=== PATIENT | female | born 1970 | race Caucasian/White ===

== ENCOUNTER → 2016-06-21 | Outpatient (CLI) | payer BC | LOC: GMA 10:17 | PROVIDERS: ATTEND Nurse Practitioner Acute Care | DX: D51.3 Other dietary vitamin B12 deficiency anemia (principal) ==

== ENCOUNTER → 2016-10-25 | Outpatient (CLI) | payer BC ==
--- NOTE | 2016-10-25 14:27 | MAM ---
History: Well woman exam. Date of exam: 10/25/2016 Services provided: Bilateral full field digital screening mammography. CAD, the images were reviewed with R2 computer aided detection. FINDINGS: Glandular tissue is scattered nodular contour. Comparison with 2013 exam. No dominant mass, architectural distortion or clustered microcalcification. IMPRESSION: Benign exam Recommendation: Routine annual mammography BIRAD CATEGORY: 2 BENIGN Electronically signed by: Shamika Galvez MD 10/25/2016 2:26 PM CDT
== END | disposition home or self-care (01) ==
LOC: MAMMO 09:02
PROVIDERS: ATTEND Family Medicine
DX: Z12.31 Encounter for screening mammogram for malignant neoplasm of breast (principal)

== ENCOUNTER → 2016-11-11 | Outpatient (CLI) | payer SELFPAY ==
--- NOTE | 2016-11-11 16:22 | US ---
EXAM DESCRIPTION: Soft Tissue,Head/Neck CLINICAL HISTORY: 46 years Female, DYSPHAGIA Grayscale and color Doppler imaging of the thyroid gland was performed. The thyroid gland is heterogeneous which can be seen in setting of thyroiditis. Blood flow is normal, however. The right thyroid lobe measures 3.8 cm craniocaudal. Left are lobe measures 2.8 cm craniocaudal. The isthmus measures 2 mm in diameter. Tiny subcentimeter nodules noted bilaterally within the mid right thyroid gland. IMPRESSION: Heterogeneous thyroid gland is again noted. Tiny subcentimeter nodules noted within both the left and right thyroid lobes. As these were not noted on the prior study or follow-up is suggested. Electronically signed by: Venkatesh Wiley MD 11/11/2016 4:22 PM CDT
== END | disposition home or self-care (01) ==
LOC: US 11:23
PROVIDERS: ATTEND Nurse Practitioner Acute Care
DX: R13.0 Aphagia (principal); R13.10 Dysphagia, unspecified

== ENCOUNTER → 2016-11-27 | Outpatient (CLI) | payer SELFPAY | END | disposition home or self-care (01) | LOC: GMA 14:20 | PROVIDERS: ATTEND Nurse Practitioner Acute Care | DX: D51.3 Other dietary vitamin B12 deficiency anemia (principal); E03.9 Hypothyroidism, unspecified ==

== ENCOUNTER → 2017-09-30 | Outpatient (CLI) | payer BC | LOC: GMALS 11:29 | PROVIDERS: ATTEND Nurse Practitioner Acute Care | DX: D51.3 Other dietary vitamin B12 deficiency anemia (principal); E03.9 Hypothyroidism, unspecified; N30.00 Acute cystitis without hematuria ==

== ENCOUNTER → 2018-02-20 | Outpatient (CLI) | payer BC | LOC: GMALS 10:38 | PROVIDERS: ATTEND Nurse Practitioner Acute Care | DX: E03.9 Hypothyroidism, unspecified (principal) ==

== ENCOUNTER → 2018-03-11 | Outpatient (CLI) | payer BC | LOC: GMATM 16:37 | PROVIDERS: ATTEND Nurse Practitioner Family | DX: R10.9 Unspecified abdominal pain (principal) ==

== ENCOUNTER → 2018-03-13 | Outpatient (CLI) | payer BC ==
--- NOTE | 2018-03-13 16:43 | US ---
EXAM DESCRIPTION: Abdomen,Complete CLINICAL HISTORY: EPIGASTRIC PAIN COMPARISON: None Available. TECHNIQUE: Complete abdominal ultrasound FINDINGS: Visualized portions of the pancreas are unremarkable. No peripancreatic fluid. Bowel gas obscures some areas. Normal caliber of the aorta. Normal appearance of the inferior vena cava. Liver parenchyma is homogeneous in texture with normal echogenicity. No liver mass or intrahepatic bile duct dilatation. No liver surface irregularity. Normal appearance of hepatic veins and portal vein. Gallbladder appears normal with no intraluminal stones. No gallbladder wall thickening. Common bile duct is normal in caliber measuring 4.0 mm. The right kidney measures 9.9 cm in length. Normal renal cortical echogenicity. The renal cortical thickness appears normal. No right renal mass, shadowing stone or cyst. There is no hydronephrosis. Spleen is normal in size. No focal splenic lesion. The left kidney measures 10.2 cm in length. Normal renal cortical echogenicity. The renal cortical thickness appears normal. No left renal mass, shadowing stone or cyst. There is no hydronephrosis. IMPRESSION: No diagnostic abnormality is identified on sonographic evaluation of the upper abdomen. Electronically signed by: Ramon Long MD 03/13/2018 4:42 PM CDT
== END ==
LOC: US 10:30
PROVIDERS: ATTEND Nurse Practitioner Family
DX: R10.13 Epigastric pain (principal)

== ENCOUNTER → 2018-03-23 | Outpatient (CLI) | payer BC ==
--- NOTE | 2018-03-23 13:34 | US ---
THYROID ULTRASOUND CLINICAL INFORMATION: Hypothyroidism TECHNIQUE: Sonographic survey of the thyroid gland was performed and eligibility services representative images recorded. COMPARISON: 11/11/2016 FINDINGS: Thyroid size: Right lobe measures 3.8 x 0.8 x 1.4 cm. The left lobe measures 2.9 x 1.1 x 1.2 cm. The isthmus measures 0.1 cm. Texture: Heterogeneous Estimated total number of nodules >/=1 cm: 0 Number of spongiform nodules >/=2 cm not described below (TR1): 0 Number of mixed cystic and solid nodules >/=1.5 cm not described below (TR2): 0 Nodule #: #: 1: Maximum size: 0.7 cm; All dimensions 0.7 x 0.3 x 0.4 cm Location: right; mid Composition: solid/almost completely solid (2) Echogenicity: hypoechoic (2) Shape: not [id number] (0) Margins: ill-defined (0) Echogenic foci: none (0) ACR TI-RADS total points: 4. ACR TI-RADS risk category: TR4 (4-6 points) ACR TI-RADS recommendation: No further follow-up Nodule #: #: 2: Maximum size: 0.4 cm; All dimensions 0.4 x 0.3 x 0.4 cm Location: left; upper Composition: mixed cystic and solid (1) Echogenicity: hypoechoic (2) Shape: not [id number] (0) Margins: ill-defined (0) Echogenic foci: none (0) ACR TI-RADS total points: 3. ACR TI-RADS risk category: TR3 (3 points) ACR TI-RADS recommendation: No further follow-up IMPRESSION: 1. Stable subcentimeter nodules in both lobes of the thyroid gland. No further follow-up imaging recommended. ACR TI-RADS recommendations: TR5 (>/=7 points) - FNA if >/=1 cm, follow-up if 0.5 - 0.9 cm every year for 5 years TR4 (4-6 points) - FNA if >/=1.5 cm, follow-up if 1 - 1.4 cm in 1, 2, 3 and 5 years TR3 (3 points) - FNA if >/=2.5 cm, follow -up if 1.5 - 2.4 cm in 1, 3 and 5 years TR2 (2 points) and TR1 (0 points) - No FNA or follow-up * ACR TI-RADS recommends that no more than two nodules with the highest ACR TI-RADS total point should be biopsied and no more than four nodules should be followed. Electronically signed by: Tomasz Katz MD 03/23/2018 1:33 PM CDT
== END ==
LOC: US 10:46
PROVIDERS: ATTEND Nurse Practitioner Acute Care
DX: E03.9 Hypothyroidism, unspecified (principal)

== ENCOUNTER → 2018-09-04 | Outpatient (CLI) | payer BC | LOC: GMALS 11:12 | PROVIDERS: ATTEND Nurse Practitioner Acute Care | DX: E03.9 Hypothyroidism, unspecified (principal) ==

== ENCOUNTER 2018-11-24 07:12 | Observation (INO) | payer BC ==
[2018-11-24] MEDS ORDERED: NITROGLYCERIN 0.4 MG 25 EA TAB SL PRN ×2 (07:22→12:54)
[2018-11-24] MEDS ORDERED: ASPIRIN (CHEWABLE) 81 MG TAB PO ONE (07:22)
[2018-11-24] MEDS ORDERED: SODIUM CHLORIDE 0.9% (FLUSH) 10 ML SYG IV PRN ×2 (07:22→12:54)
--- NOTE | 2018-11-24 07:26 | ED.PDOC ---
History of Present Illness - General Chief Complaint: Cardiovascular Problem Stated Complaint: chest pain,left shoulder pain Time Seen by Provider: 11/24/18 07:21 Source: patient Exam Limitations: no limitations - History of Present Illness Initial Comments: PT PRESENTS WITH COMPLAINT OF CHEST PAIN DESCRIBED PRESSURE LIKE IN MID CHEST AND SHARP IN L SHOULDER. PT REPORTS THAT PAIN BEGAN LAST NIGHT AND HAS PROGRESSIVELY GOTTEN WORSE THIS AM. PT REPORTS ASSOCIATED SHORTNESS OF BREATH. DENIES, COUGH, FEVER, DIZZINESS, NAUSEA, OR ABD PAIN. Timing/Duration: constant, getting worse Severity/Quality: pressure, sharp Location: substernal Chest Pain Radiation: shoulders Activities at Onset: none Improving Factors: other - SITTING BACK Worsening Factors: other - LEANING BACK Nitro Today/Relief: no nitro taken today Aspirin Treatment Today: 81 mg x 1 Associated Symptoms: shortness of breath Allergies/Adverse Reactions: Allergies Codeine Allergy (Verified 11/24/18 07:26) Home Medications: Ambulatory Orders Omeprazole [Prilosec Cap] 40 mg PO PRN 11/24/18 Thyroid [Nature-Throid] 1.5 each PO DAILY 11/24/18 Review of Systems - Review of Systems Constitutional: Denies: chills, fever EENTM: Denies: nose congestion, throat pain Respiratory: States: short of breath. Denies: cough Cardiology: States: chest pain. Denies: palpitations, syncope Gastrointestinal/Abdominal: Denies: nausea, vomiting Genitourinary: Denies: dysuria, frequency Musculoskeletal: Denies: joint pain, joint swelling Skin: Denies: lesions, rash Neurological: Denies: headache, numbness Endocrine: States: no symptoms reported Hematologic/Lymphatic: States: no symptoms reported Past Medical History (General) - Patient Medical History Hx Thyroid Disease: Yes Hx Gastroesophageal Reflux: Yes Family Medical History - Family History Mother Family History: Unknown Living Status: Unknown Physical Exam - Physical Exam General Appearance: Alert, Obvious distress, Well Developed, Well Groomed, Well Hydrated Eyes, Ears, Nose, Throat Exam: normal ENT inspection Neck: non-tender, full range of motion, supple Respiratory: lungs clear, normal breath sounds, no respiratory distress Cardiovascular/Chest: regular rate, rhythm, no murmur Gastrointestinal/Abdominal: non tender, soft Extremity: non-tender, normal inspection, no pedal edema, no calf tenderness Neurologic: alert, normal mood/affect, oriented x 3 Skin Exam: normal color, warm/dry Progress - Progress Progress: 11/24/18 09:26 PT REPORTS INITIAL IMPROVEMENT AFTER SL NTG BUT THEN STATES THAT PAIN INCREASED. 2MG IV MORPHINE ORDERED WITH 0.5MG IV ATIVAN. 11/24/18 10:25 PT REPORTS IMPROVEMENT IN PAIN TO 5/10 AFTER MORPHINE. ADDITIONAL 2MG ORDERED. 11/24/18 10:48 PT NOW STATES THAT PAIN IS 3/10. WILL TRY TORADOL, PROTONIX, GI SLIDER FOR ADDITIONAL RELIEF. - Results/Orders Results/Orders: Laboratory Tests 11/24/18 11/24/18 11/24/18 07:25 07:25 09:20 WBC 8.0 RBC 4.76 Hgb 14.3 Hct 43.3 MCV 91.0 MCH 30.1 MCHC 33.1 RDW 13.9 Plt Count 265 MPV 9.3 Absolute Neuts (auto) 4.90 Absolute Lymphs (auto) 2.20 Absolute Monos (auto) 0.80 Absolute Eos (auto) 0.10 Absolute Basos (auto) 0.10 Neutrophils % 60.6 Lymphocytes % 26.9 Monocytes % 10.3 H Eosinophils % 1.3 Basophils % 0.9 PT 9.6 INR 0.96 PTT (SP) 26.6 D-Dimer, Quantitative 0.36 Sodium 140 Potassium 3.7 Chloride 105 Carbon Dioxide 23 Anion Gap 15.7 BUN 16 Creatinine 0.78 BUN/Creatinine Ratio 20.5 H Random Glucose 108 H Serum Osmolality 281.1 Calcium 9.6 Magnesium 1.9 Creatine Kinase 86 CK-MB (CK-2) 1.0 CK-MB (CK-2) % Not Reportable Troponin I < 0.02 Urine Color Yellow Urine Appearance Clear Urine pH 7.5 Ur Specific [place] 1.015 Urine Protein Negative Urine Glucose (UA) Negative Urine Ketones Negative Urine Blood Negative Urine Nitrite Negative Urine Bilirubin Negative Urine Urobilinogen 0.2 Ur Leukocyte Esterase Trace H Urine RBC 0 Urine WBC 0-1 Ur Epithelial Cells 1-3 Other Crystals 1+powder crystals Urine Bacteria 0 - EKG/XRAY/CT EKG: Sinus - @94BPM, NL INTERVALS, NL AXIS, no ST T wave changes - NO OLD EKG FOR COMPARISON Departure - Departure Clinical Impression: Chest pain Time of Disposition: 10:49 Disposition: Discharge to Home or Self Care Condition: Fair Departure Forms: ED Discharge - Pt. Copy, Patient Portal Self Enrollment Instructions: DI for Chest Pain Referrals: Carlito Archibald MD [Primary Care Provider] - 1-2 Weeks Home Medications: Ambulatory Orders Omeprazole [Prilosec Cap] 40 mg PO PRN 11/24/18 Thyroid [Nature-Throid] 1.5 each PO DAILY 11/24/18 Decision To Admit - Decistion To Admit Decision to Admit Reason: Admit from ER Decision to Admit Date: 11/24/18 Decision to Admit Time: 10:50 - CASE DISCUSSED WITH CASSANDRA GALEANO NP WHO AGREES TO ADMIT
--- NOTE | 2018-11-24 07:43 | RAD ---
Study: Single Frontal Radiograph of the Chest. Indication:chest pain/sob Comparison: None. Impression: Heart size normal. Lungs clear. No acute osseous abnormality. Electronically signed by: Figueroa Browning MD 11/24/2018 7:41 AM CDT
[2018-11-24] MEDS ORDERED: MORPHINE SULFATE INJ 10 MG/ML VIAL IV ONE ×2 (08:02→08:24)
[2018-11-24] MEDS ORDERED: SODIUM CHLORIDE 0.9% 1000ML 1,000 ML IVS ONE (08:02)
--- NOTE | 2018-11-24 09:13 | CT ---
EXAM DESCRIPTION: CTA Chest CLINICAL HISTORY: chest pain COMPARISON: Chest radiograph November 24, 2018 TECHNIQUE: Chest CTA was performed with IV contrast including MIP and/or Three-D reconstructed images. This exam was performed according to our departmental dose-optimization program, which includes automated exposure control, adjustment of the mA and/or kV according to patient size and/or use of iterative reconstruction technique. FINDINGS: These images significantly limited by suboptimal intraluminal contrast in the pulmonary arterial tree related to delayed timing of imaging relative to contrast bolus administration. With this in mind, no central pulmonary embolus is identified. No thoracic aortic aneurysm or dissection. The thyroid appears atrophy. The thoracic inlet is unremarkable. No mediastinal or hilar adenopathy. No pleural or pericardial effusion. No esophageal wall thickening. The central airways are clear. No airspace consolidation or lung mass. Mild dependent atelectasis posteriorly in both lung bases. Visualized portions of the upper abdomen are unremarkable. IMPRESSION: Limited exam as detailed above without central pulmonary embolus or other acute intrathoracic abnormality to explain chest pain. Electronically signed by: Jorge A Calzada MD 11/24/2018 9:11 AM CDT
[2018-11-24] MEDS ORDERED: KETOROLAC TROMETHAMINE INJ 30 MG/ML VIAL IV ONE (10:15)
[2018-11-24] MEDS ORDERED: ALUM & MAG HYDROX-SIMETHICONE 30 ML, LIDOCAINE VISCOUS 2% 15 ML PO ONE ×2 (10:45)
[2018-11-24] MEDS ORDERED: PANTOPRAZOLE SODIUM IV 40 MG VIAL IV ONE (10:45)
[2018-11-24] MEDS ORDERED: FAMOTIDINE IV PREMIX 20 MG in PREMIX BAG 1 BAG IVPB ONE (10:50)
[2018-11-24] MEDS ORDERED: ALUM & MAG HYDROX-SIMETHICONE 30 ML UD ONE (10:50)
[2018-11-24] MEDS ORDERED: LIDOCAINE HCL 2% (MOUTH-THROAT) 15 ML UD ONE (10:50)
[2018-11-24] MEDS ORDERED: FAMOTIDINE IV PREMIX 50 ML IVPB ONE (10:50)
--- NOTE | 2018-11-24 11:30 | HP ---
SUPERVISING PHYSICIAN: Nnamdi Day MD CHIEF COMPLAINT: Chest pain. HISTORY OF PRESENT ILLNESS: PAST MEDICAL HISTORY: PAST SURGICAL HISTORY: MEDICATIONS: ALLERGIES: FAMILY HISTORY: SOCIAL HISTORY: REVIEW OF SYSTEMS: CONSTITUTIONAL: No fever or chills. No recent weight loss or weight gain. HEENT: No headaches, vision changes, ear pain, nasal congestion or throat pain. NECK: No neck stiffness, swelling or neck pain. RESPIRATORY: No cough, hemoptysis or pleuritic chest pain. CARDIOVASCULAR: No chest pain, palpitations or peripheral edema. GASTROINTESTINAL: No nausea, vomiting, diarrhea, constipation or abdominal pain. GENITOURINARY: No dysuria, frequency or flank pain. HEMATOLOGIC: No easy bruising and no transfusion reaction. MUSCULOSKELETAL: No back pain, muscle cramps, joint pain or joint swelling. SKIN: No rashes, lesions or wounds. ENDOCRINE: No polydipsia, polyuria or polyphagia. No heat or cold intolerance. NEUROLOGIC: No syncope, paresthesias or seizures. PSYCHIATRIC: PHYSICAL EXAMINATION: VITAL SIGNS: GENERAL: in no active distress currently. HEENT: Normocephalic, atraumatic. Pupils are equal and reactive. No nasal drainage. Throat with moist mucosa. NECK: Supple. Midline trachea. No jugular venous distention. CHEST: Symmetrical with equal rise and fall of the chest with inspiration and expiration. Lung sounds are clear to auscultation bilaterally. CARDIOVASCULAR: Regular rate and rhythm. Normal S1, S2. ABDOMEN: Soft. Positive bowel sounds. No tenderness to palpation. No detectable organomegaly. GENITOURINARY: Deferred. EXTREMITIES: Lower extremities with no edema. Peripheral pulses are 2+. Pulses 2+. Capillary refill is less than 2 seconds. Capillary refill is within normal limits. NEUROLOGIC: The patient is alert and oriented. Moves all extremities. Extraocular movements are intact. LABORATORY: Labs and films are as discussed in history of present illness. ASSESSMENT: 1. PLAN: #[id number] MTDD
[2018-11-24] MEDS ORDERED: ACETAMINOPHEN 325 MG TAB PO PRN (12:54)
[2018-11-24] MEDS ORDERED: IV SET AND CAP CHANGE INJ INJ SCH (13:00)
[2018-11-24] MEDS ORDERED: ALPRAZolam 0.5 MG TAB PO PRN (13:14)
[2018-11-24] MEDS ORDERED: ALPRAZolam 0.5 MG TAB ONE (13:21)
[2018-11-24] MEDS ORDERED: MORPHINE SULFATE INJ 10 MG/ML VIAL ONE (13:22)
[2018-11-24] MEDS: MORPHINE SULFATE INJ 10 MG/ML VIAL IV PRN ×3 (13:25→17:31)
[2018-11-24] MEDS: KETOROLAC TROMETHAMINE INJ 30 MG/ML VIAL IV PRN ×2 (14:06→22:10)
[2018-11-24] MEDS ORDERED: tiZANidine 4 MG TAB ONE (14:34)
[2018-11-24] MEDS ORDERED: tiZANidine 4 MG TAB PO ONE (14:38)
[2018-11-24] MEDS ORDERED: NIFEdipine 10 MG CAP PO ONE (14:42)
[2018-11-24] MEDS: SODIUM CHLORIDE 0.9% (FLUSH) 10 ML SYG IV SCH (21:05)
[2018-11-25] MEDS: KETOROLAC TROMETHAMINE INJ 30 MG/ML VIAL IV PRN (05:22)
[2018-11-25] MEDS ORDERED: OMEPRAZOLE CAP 20 MG CAP PO SCH (06:30)
[2018-11-25] MEDS ORDERED: ASPIRIN TABLET 325 MG TAB PO SCH (09:00)
[2018-11-25 09:15] VITALS: O2SAT 97
--- NOTE | 2018-11-25 09:28 | US ---
EXAM DESCRIPTION: Abdomen,Complete CLINICAL HISTORY: atypical chest pain COMPARISON: None Available. TECHNIQUE: Complete abdominal ultrasound FINDINGS: The liver is normal in appearance. There is no focal hepatic mass. Liver is 13.5 cm in length. Hepatopetal flow without ascites is evident. The gallbladder is well seen and unremarkable. There are no gallstones. There is no gallbladder wall thickening. The common bile duct is normal in caliber measuring 5.7 mm. The pancreas is normal in appearance and borderline splenomegaly at 12 cm in length without focal mass noted. The kidneys are normal in size, shape, and echotexture. The right kidney is 10.1 cm and left kidney 10.3 cm in length. No cyst or mass or hydronephrosis noted. The IVC and the proximal aorta are unremarkable. The aorta tapers from 1.8 to 1.4 cm. IMPRESSION: 1. Normal abdominal sonogram. Electronically signed by: Karl Darden MD 11/25/2018 9:26 AM CDT
[2018-11-25] MEDS: SODIUM CHLORIDE 0.9% (FLUSH) 10 ML SYG IV SCH (09:32)
[2018-11-25 10:28] VITALS: BP 99/63; TEMP 98.3
--- NOTE | 2018-11-25 10:42 | HP ---
SUPERVISING PHYSICIAN: Nnamdi Day MD CHIEF COMPLAINT: Chest pain. HISTORY OF PRESENT ILLNESS: This is a 48-year-old female who came into the Emergency Room with complaints of chest pain. She states that last night she started to have some sharp pain in her shoulder which went back to her shoulder blade. This was pretty constant in nature, did not really wax and wane. She states she really was not overusing the arm yesterday, but had her grandson for about a week and states she was picking him up and down quite a bit, so potentially had some problems, but did not notice any actual injury with all the lifting. Early this morning, she complained of some pressure on her chest, substernal, right in the middle of her chest which was more dull in nature. When she got to the Emergency Room, her evaluation of pain on a scale of 0 to 10 was about 8. In the Emergency Room, she was evaluated by Dr. Montemayor and initially had negative troponin and EKG was normal. In the Emergency Room, she was given some sublingual nitroglycerin which initially improved the pain, but then it started to return, so she was given 2 mg of morphine along with 0.5 mg of IV Ativan. The pain improved to 5/10 and then another 2 mg of morphine was given. After that, the pain went to 3/10. She was given Toradol, Protonix and a GI slider. This improved the pain as well. Therefore, she was referred for admission for chest pain rule out. An additional set of cardiac enzymes were done at approximately 11 o'clock in the morning and those were negative as well. Additionally, there have been no EKG changes. At time of examination, the patient is without distress, alert and oriented and had several family members around. PAST MEDICAL HISTORY: 1. Hypothyroidism. 2. Esophageal stricture. PAST SURGICAL HISTORY: 1. Hysterectomy with bilateral salpingo-oophorectomy in 1999. 2. Exploratory lap in the mid- which showed endometriosis, but she also had an appendectomy at that time. 3. Breast reduction in 1991. 4. Bladder suspension. 5. EGD with esophageal dilatation. MEDICATIONS: 1. Nature thyroid 65 mg 1.5 tabs daily. 2. Prilosec p.r.n. ALLERGIES: CODEINE. FAMILY HISTORY: Maternal grandmother had congestive heart failure and broken heart syndrome, but no other cardiac issues in the family. She says all the women in her family have had thyroid problems. SOCIAL HISTORY: Nondrinker, nonsmoker, no illicit drugs. REVIEW OF SYSTEMS: CONSTITUTIONAL: No fever or chills. No recent weight loss or weight gain. HEENT: No headaches, vision changes, ear pain, nasal congestion or throat pain. RESPIRATORY: No cough, hemoptysis or pleuritic chest pain. CARDIOVASCULAR: Positive for chest pain. No palpitations or peripheral edema. GASTROINTESTINAL: No nausea, vomiting, diarrhea, constipation or abdominal pain. GENITOURINARY: No dysuria, frequency or flank pain. MUSCULOSKELETAL: No muscle cramps, joint pain or joint swelling. ENDOCRINE: No polydipsia, polyuria or polyphagia. No heat or cold intolerance. NEUROLOGIC: No syncope, paresthesias or seizures. PHYSICAL EXAMINATION: VITAL SIGNS: Blood pressure 113/72. Heart rate 88. Respiratory rate 16. Temperature 97.4. Oxygen saturation 99%. GENERAL: Ms. Friedman is a 48-year-old female who is in no active distress currently. HEENT: Normocephalic, atraumatic. Pupils are equal and reactive. No nasal drainage. Throat with moist mucosa. NECK: Supple. Midline trachea. No jugular venous distention. CHEST: Symmetrical with equal rise and fall of the chest with inspiration and expiration. Lung sounds are clear to auscultation bilaterally. CARDIOVASCULAR: Regular rate and rhythm. Normal S1, S2. ABDOMEN: Soft. Positive bowel sounds. GENITOURINARY: Deferred. EXTREMITIES: Lower extremities with no edema. Pulses 2+. Capillary refill is less than 2 seconds. LABORATORY: Labs are reviewed via the EMR. She did have a chest x-ray which showed no acute cardiopulmonary process. She also had a CT angiogram of the chest which does not show pulmonary embolism, does not show any acute cardiopulmonary process. ASSESSMENT: 1. Atypical chest pain. 2. History of hypothyroidism. 3. History of esophageal stricture status post dilatation in 2018. PLAN: We will admit the patient for chest pain protocol. This will include serial cardiac enzymes as well as EKGs. I did discuss with her if everything is negative, we will make a followup appointment with her primary care physician for a referral to a staff attorney for stress test in the future. If she has EKG changes or elevations in her troponin, we will transport to a higher level of care. #[id number] ASHLEY
--- NOTE | 2018-11-25 10:52 | DS ---
SUPERVISING PHYSICIAN: Nnamdi Day MD ADMISSION DIAGNOSIS: 1. Atypical chest pain. 2. History of hypothyroidism. 3. History of esophageal stricture status post dilatation in 2018. DISCHARGE DIAGNOSIS: 1. Atypical chest pain. 2. History of hypothyroidism. 3. History of esophageal stricture status post dilatation in 2018. HOSPITAL COURSE: This is a 48-year-old female who came to the Emergency Room with complaints of chest pain. She states the pain started the night before and had some sharp pain in her left shoulder, which went back to her shoulder blade. It was pretty constant in nature and did not really wax and wane. She has not been overusing the arm, so it does not appear to be an overuse type syndrome. On the morning on admission, she had complained of some chest pressure in addition to the left shoulder pain. Therefore, she came to the Emergency Room. She had two negative troponins and EKG was normal in the Emergency Room. She was referred for observation for chest pain rule out. In the Emergency Room, she had initially gotten some nitroglycerin and this was followed with morphine. Eventually, she got some Ativan, Protonix and GI slider as well. That reduced her pain from initially, which was an 8, down to a 3. On the Floor, it was a 3 and she was without distress. She had an episode of severe pain yesterday afternoon. Repeat EKG was normal except for tachycardia and cardiac markers were negative. Due to the negative workup and CT angiogram which was also negative for pulmonary embolism, I discussed with Dr. Day as well as Dr. Archibald who came to evaluate the patient. At that point, it was felt that the pain was secondary to esophageal spasm. At that point, she was given Toradol and additional morphine which eventually reduced the pain. I also gave her nifedipine for preventing esophageal spasm. Throughout the evening and creative consultant, she did not have any repeat episodes of the severe pain. This morning, we did an echocardiogram which is still pending due to cardiology interpretation. The abdominal sonogram was negative. I discussed with Dr. Archibald once again and he is wanting to change her proton pump inhibitor to Dexilant from Prilosec and go ahead and place her on scheduled nifedipine as well for preventative measures for esophageal spasm. I discussed this plan with the patient and the fact that she needed to go to followup appointment on Friday at 10 AM. She agreed with that and will be discharged today in stable condition. #[id number] ASHLEY
== END 2018-11-25 11:10 | disposition home or self-care (01) ==
LOC: ER 07:12 → MS 11:29 → INTOOBSV 11:29
PROVIDERS: ADMIT Nurse Practitioner; ATTEND Nurse Practitioner
DX: R07.89 Other chest pain (principal); E03.9 Hypothyroidism, unspecified; K22.4 Dyskinesia of esophagus; K21.9 Gastro-esophageal reflux disease without esophagitis; M25.512 Pain in left shoulder; R06.02 Shortness of breath; I34.0 Nonrheumatic mitral (valve) insufficiency; Z79.890 Hormone replacement therapy; Z79.899 Other long term (current) drug therapy; Z88.6 Allergy status to analgesic agent; Z90.49 Acquired absence of other specified parts of digestive tract; Z90.710 Acquired absence of both cervix and uterus; Z82.49 Family history of ischemic heart disease and other diseases of the circulatory system
CPT/HCPCS: 96361; 96365; 96375; 96376 ×2; J1885 ×4; J2060; J2270 ×5; J7030; J3490; 85379; 82553 ×4; 80061; 36415 ×4; 82550 ×4; 80048; 85025; 85730; 85610; 84484 ×4; 81001; 71045; 71275; 76700; 94760 ×2; 93306; 93005 ×4; G0378

== ENCOUNTER → 2018-12-16 | Outpatient (CLI) | payer BC ==
--- NOTE | 2018-12-16 15:32 | NM ---
EXAM DESCRIPTION: Hepatobiliary w/CCK: Nuclear Medicine. CLINICAL HISTORY: Epigastric pain COMPARISON: Abdominal ultrasound 11/25/2018. TECHNIQUE: Patient was given 8.2 mCi of technetium 99 M mebrofenin (Choletec) radiopharmaceutical IV. Anterior gamma camera images were obtained of the right upper quadrant at 1 minute intervals for one hour . The patient was then given 2.0 mcg CCK. Gallbladder ejection fraction was evaluated by measuring diminishing radioactivity in the gallbladder, over 30 min interval. FINDINGS: On the dynamic flow images, activity noted in the parenchyma almost uniformly and also intrahepatic biliary ducts. No focal areas of increased or decreased activity in the liver. Timely visualization of the common bile duct and small bowel. Delayed visualization of the gallbladder, not seen in tail 40 minutes after administration of radiopharmaceutical. After administration of CCK, there is mild duplication of symptoms noted is cramping, and a brief time.. Decline in activity in the gallbladder of approximately 52% was noted from 1 minute to 20 minutes after injection. There is only minimal insignificant amount of activity loss for the last 10 minutes of the examination. Activity declined 32% in the first 10 minutes of the examination. IMPRESSION: 1. No intrahepatic obstruction or obstruction of the common bile duct: Radionuclide hepatobiliary scan. Delayed visualization of the cystic duct and gallbladder as noted. 2. Gallbladder ejection fraction is 53% which is within normal range. There was minimal reproduction of symptoms with administration of CCK. Electronically signed by: Regis Choudhary MD 12/16/2018 3:30 PM CDT
--- NOTE | 2018-12-16 16:03 | US ---
EXAM DESCRIPTION: Soft Tissue,Abdomen: ULTRASOUND. CLINICAL HISTORY: 48 years Female Epigastric pain; subcutaneous mass COMPARISON: Complete ultrasound of the abdomen 11/25/2018. TECHNIQUE: Transcutaneous scanning: Aquino-scale mode. FINDINGS: Scanning over the area of the upper mid abdomen anterior wall, where patient feels lump. Uniform appearance of the subcutaneous adipose tissue and the subcutaneous fascia. Also the anterior abdominal wall musculature. No hernia defect is seen. No dominant solid mass or distinct cyst or fluid collection. IMPRESSION: No hernia visualized in the region of anterior midline abdominal wall mass. Electronically signed by: Regis Choudhary MD 12/16/2018 4:01 PM CDT
--- NOTE | 2018-12-17 20:17 | MAM ---
EXAM DESCRIPTION: 3D Screening BILATERAL : Digital Mammography. CLINICAL HISTORY: 48 years Female SCREENING . No complaints. No personal or family history of breast cancer. Childbirth. Postmenopausal 15+ years. HRT 5 or more years ago. Bilateral breast reduction. Lifetime risk of developing breast cancer (Tyrer-Cuzick model)(%): 6.8. COMPARISON: 2-D digital screening bilateral mammography 10/25/2016. TECHNIQUE: Bilateral CC and MLO projection full-field images, digital tomosynthesis mammographic technique. Bilateral digital 2-D full-field MLO images. CAD not available for tomosynthesis or 2-D images. FINDINGS: The breast parenchymal density pattern is: Scattered areas of fibroglandular density. No skin thickening or nipple retraction. Bilateral solitary microcalcifications. Bilateral stable areas of focal asymmetry. These may be related to prior breast reduction. No new focal, stellate mass or density, focal asymmetry , and no suspicious microcalcifications bilaterally. Stable mammograms compared to prior study. Taking into account, differences in mammographic technique. IMPRESSION: Benign exam. BIRAD CATEGORY: 2 BENIGN FINDINGS. RECOMMENDATIONS: FOLLOW UP: Routine digital bilateral mammographic screening, one year interval from December 2018. Written communication explaining the IMPRESSION and follow-up, will be mailed to the patient and referring health care provider. The FINDINGS and the FOLLOW-UP plan were reviewed in person with the patient after the examination. According to the [employer], yearly mammograms are recommended starting at age 40 and continuing as long as a woman is in good health. Any breast change noted on a breast self-exam should be reported promptly to the patient's healthcare provider. Breast MRI is recommended for women with an approximately 20-25% or greater lifetime risk of breast cancer, including women with a strong family history of breast or ovarian cancer and women who have been treated for Hodgkin's disease. A negative mammographic report should not delay tissue diagnosis in patients with significant clinical history or physical findings. Extremely dense breast tissue limits the sensitivity of digital mammography. Electronically signed by: Regis Choudhary MD 12/17/2018 8:14 PM CDT
== END ==
LOC: NM 08:49
PROVIDERS: ATTEND Surgery
DX: Z12.31 Encounter for screening mammogram for malignant neoplasm of breast (principal); R10.13 Epigastric pain; R19.06 Epigastric swelling, mass or lump
CPT/HCPCS: 76705; 77063; 77067; 78227; A9537

== ENCOUNTER → 2019-01-01 | Outpatient (CLI) | payer BC ==
--- NOTE | 2019-01-04 13:06 | CT ---
EXAM DESCRIPTION: Abdomen w/o Contrast. Computed tomography. CLINICAL HISTORY: epigastric pain COMPARISON: CT scan of the chest with contrast 11/24/2018. TECHNIQUE: Spiral-axial scans at 2.5 x 2.5 mm intervals through the abdomen. Coronal and sagittal 2.0 mm reconstructions. No IV or oral contrast. Total DLP: 836.38 mGy - m2. This exam was performed according to our departmental dose-optimization program which includes automated exposure control, adjustment of the mA and/or kV according to patient size and/or use of iterative reconstruction technique; to reduce radiation dose to as low as reasonably achievable (ALARA). FINDINGS: Lung bases and pleura: 2 mm calcified granuloma right lower lobe. Negative. Upper Abdominal organs: Long axis right lobe liver 17.7 cm. Stomach and adrenal glands and spleen unremarkable. Pancreas/Gallbladder/Ducts: Negative. Kidneys: 3 mm radiodense stone nonobstructing in the inferior collecting system of the left kidney. Right kidney unremarkable Mesentery: Negative. Aorta: Physiologic outer caliber. Small Bowel: Minimal edema can be seen in a segment of bowel in the lower mid abdomen but no surrounding fatty stranding. One segment is posterior to the umbilicus. No obstruction. Terminal Ileum/Cecum: Calcification in the ileocecal valve with normal caliber of the terminal ileum. Cecum slightly distended by fecal matter; not entirely on the study. Colon: Moderate amount of fecal matter throughout the included segments of colon. Spine: Minimal spondylosis of the inferior thoracic spine. Abdominal Wall/Back Soft Tissues: Diastases of the umbilicus containing mesenteric fat but no bowel. No fluid collection or inflammatory changes in the fat.. IMPRESSION: 1. Diastases of the umbilicus containing mesentery but no bowel. 2. Posterior to the umbilicus, segment of small bowel with mucosal edema but no obstruction. No inflammatory changes in the surrounding fat. 3. Partial visualization of a right adnexal cystic mass at the level of the cecum, medial to the right iliopsoas. Consider follow-up pelvic ultrasound. 4. Moderate colonic obstipation with no obstruction. 3 mm nonobstructing stone in the inferior collecting system of the left kidney. Electronically signed by: Regis Choudhary MD 01/04/2019 9:15 AM CDT
== END ==
LOC: CT 09:12
PROVIDERS: ATTEND Surgery
DX: M62.08 Separation of muscle (nontraumatic), other site (principal); R19.09 Other intra-abdominal and pelvic swelling, mass and lump; K59.00 Constipation, unspecified; N20.0 Calculus of kidney

== ENCOUNTER → 2019-07-16 | Outpatient (CLI) | payer BC | LOC: GMALS 12:41 | PROVIDERS: ATTEND Nurse Practitioner Acute Care | DX: E03.9 Hypothyroidism, unspecified (principal) ==

== ENCOUNTER → 2020-05-31 | Outpatient (CLI) | payer BC | LOC: GMAJ 10:18 | PROVIDERS: ATTEND Family Medicine | DX: E03.9 Hypothyroidism, unspecified (principal); Z79.899 Other long term (current) drug therapy ==

== ENCOUNTER → 2020-08-07 | Outpatient (CLI) | payer BC | LOC: GMAJ 14:13 | PROVIDERS: ATTEND Family Medicine | DX: E03.9 Hypothyroidism, unspecified (principal) ==